=== PATIENT | male | born 1950 | race Caucasian/White ===

== ENCOUNTER 2018-03-23 16:04 | Outpatient (CLI) | payer BC, SELFPAY ==
--- NOTE | 2018-03-23 15:00 | DI.RAD_ITS ---
SYMPTOMS/DIAGNOSIS: CHEST PAIN, R07.9 PA AND LATERAL CHEST: There are no prior comparison exams. The heart size is normal. The aorta is mildly tortuous. The lungs appear clear. No infiltrate, effusion or pneumothorax is seen. IMPRESSION: Negative chest x-ray.
[2018-03-23 15:38] LABS: HCT 47.5 % (40.0-50.0); HGB 15.9 g/dL (13.5-17.5); Mean Corp. HGB Concentration 33.5 g/dL (32.0-36.0); Mean Corpuscular Hemoglobin 29.8 pg (27.0-33.0); Mean Platelet Volume 10.9 fL (8.0-11.0); Platelet Count 193 x1000/uL (130-400); RBC 5.34 m/cumm (4.50-6.00); RBC Distribution Width 13.3 % (11.8-14.1); White Blood Cell Count 6.54 k/cumm (4.4-10.8)
[2018-03-23 16:07] LABS: ALT 26 U/L (12-78); AST 17 U/L (15-37); Albumin 3.7 g/dL (3.4-5.0); Alkaline Phosphatase 62 U/L (46-116); Anion Gap 10.3 mmol/L (3-11); BUN 18 mg/dL (7-18); Bilirubin, Total 0.4 mg/dL (0.2-1.0); CO2 29.7 mmol/L (21.0-32.0); CREATININE 0.97 mg/dL (0.70-1.30); Calcium 9.1 mg/dL (8.5-10.1); Chloride 104 mmol/L (98-107); Glucose 100 mg/dL (70-100); Sodium 144 mmol/L (136-145); Total Protein 7.1 g/dL (6.4-8.2)
[2018-03-23 20:58] LABS: CRP, High Sensitivity 0.14 mg/L
== END 2018-03-23 16:24 ==
PROVIDERS: PCP Nurse Practitioner; Visit Provider Nurse Practitioner
DX: R07.89 Other chest pain (principal)
CPT/HCPCS: 36415; 80053; 85027; 86141; 71046

== ENCOUNTER 2020-06-23 02:52 | Outpatient (CLI) | payer BC, SELFPAY ==
[2020-06-23 11:24] LABS: HCT 48.6 % (40.0-50.0); HGB 15.8 g/dL (13.5-17.5); MCH 29.2 pg (27.0-33.0); MCHC 32.5 % (32.0-36.0); MCV 89.8 fL (80-95); MPV 10.9 fL (8.0-11.0); Platelet Count 204 10^3/uL (130-400); RBC 5.41 10^6/uL (4.36-5.78); RDW-SD 42.8 fL; WBC 5.68 10^3/uL (4.4-10.8)
[2020-06-23 12:03] LABS: ALT 33 U/L (16-63); AST 26 U/L (15-37); Albumin 3.8 g/dL (3.4-5.0); Alkaline Phosphatase 73 U/L (46-116); Anion Gap 6.9 mmol/L (3-11); BUN 15 mg/dL (7-18); Bilirubin, Total 0.7 mg/dL (0.2-1.0); CO2 28.1 mmol/L (21.0-32.0); CREATININE 0.8 mg/dL (0.70-1.30); Calcium 8.8 mg/dL (8.5-10.1); Calculated LDL 128 mg/dL (<100); Chloride 106 mmol/L (98-107); Cholesterol 202 mg/dL (<200); Glucose 82 mg/dL (74-106); HDL Cholesterol 63 mg/dL (40-60); Potassium 4.4 mmol/L (3.5-5.1); Sodium 141 mmol/L (136-145); Total Protein 7.1 g/dL (6.4-8.2); Triglyceride 57 mg/dL (<150)
[2020-06-23 17:06] LABS: PSA, Screening 0.2 ng/mL (0.0-4.5)
== END 2020-06-23 02:53 | disposition home or self-care (01) ==
LOC: LBO 02:52
PROVIDERS: PCP Nurse Practitioner; Visit Provider Nurse Practitioner
DX: I10 Essential (primary) hypertension (principal); Z13.220 Encounter for screening for lipoid disorders; Z85.46 Personal history of malignant neoplasm of prostate
CPT/HCPCS: 36415; 80053; 80061; 84153; 85027

== ENCOUNTER 2022-01-18 01:32 | Outpatient (CLI) | payer BC, SELFPAY ==
[2022-01-18 09:35] LABS: HCT 48.6 % (40.0-50.0); HGB 15.9 g/dL (13.5-17.5); MCH 29.7 pg (27.0-33.0); MCHC 32.7 % (32.0-36.0); MCV 91 fL (80-95); MPV 10.4 fL (8.0-11.0); Platelet Count 230 10^3/uL (130-400); RBC 5.36 10^6/uL (4.36-5.78); RDW-SD 40.4 fL
[2022-01-18 10:08] LABS: ALT 23 U/L (16-63); AST 17 U/L (15-37); Albumin 3.7 g/dL (3.4-5.0); Alkaline Phosphatase 60 U/L (46-116); Anion Gap 4.8 mmol/L (3-11); BUN 18 mg/dL (7-18); Bilirubin, Total 0.6 mg/dL (0.2-1.0); CO2 30.2 mmol/L (21.0-32.0); Calcium 9.4 mg/dL (8.5-10.1); Calculated LDL 117 mg/dL (<100); Chloride 103 mmol/L (98-107); Cholesterol 198 mg/dL (<200); Estimated GFR 81.47 (mL/min/1.73m2); Glucose 94 mg/dL (74-106); HDL Cholesterol 64 mg/dL (40-60); Potassium 4.5 mmol/L (3.5-5.1); Sodium 138 mmol/L (136-145); Total Protein 7.6 g/dL (6.4-8.2); Triglyceride 88 mg/dL (<150)
[2022-01-18 18:47] LABS: PSA, Screening 0.4 ng/mL (<=4.5)
[2022-01-21 10:36] LABS: Hepatitis C Ab w Rflx HCV PCR Negative (Negative)
== END 2022-01-18 01:33 | disposition home or self-care (01) ==
PROVIDERS: PCP Nurse Practitioner; Visit Provider Nurse Practitioner
DX: I10 Essential (primary) hypertension (principal); Z85.46 Personal history of malignant neoplasm of prostate; Z11.59 Encounter for screening for other viral diseases; Z12.5 Encounter for screening for malignant neoplasm of prostate
CPT/HCPCS: 36415; 80053; 80061; 84153; 85027; 86803

== ENCOUNTER 2022-05-27 13:23 | Outpatient (REF) | payer BC, SELFPAY ==
--- OUTSIDE RECORDS SUMMARY | 2022-05-27 13:28 | XMS_ITS | Continuity of Care Document ---
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 Role Phone GRISELDA ECKERT NP Primary Care Physician Encounter [facility] NBR [id number] Date(s): 03/12/22 - 03/12/22 [facility] [address], [place] [address] Encounter Diagnosis Complete rotator cuff tear or rupture of right shoulder, not specified as traumatic(Discharge Diagnosis) - 03/12/22 Subacromial impingement of right shoulder(Discharge Diagnosis) - 03/12/22 Discharge Disposition: Home or Self Care Attending Physician: DELMIS Ward Allergies, Adverse Reactions, Alerts No Known Allergies Functional Status 03/12/22 Other exposure to Infectious Disease Non e Medications lisinopril 0 Refill(s) Start Date: 01/10/22 Status: Ordered Problem List Condition Confirmation Course Effective Dates Status Health St atus Informant High blood pressure Confirmed Active Procedures Procedure Date Related Diagnosis Body Site Status Anesthesia for extraperitone al procedures in lower abdomen, including urinary tract; radical prostatectomy (suprapubic, retropubic) Completed Vital Signs Most recent to oldest [Reference Range]: 1 Peripheral Pulse Rate [60-100 bpm] 91 bp m (03/12/22 8:39 AM) Blood Pressure [90-140/60-90 mmHg] 148/8 4mmHg *HI* (03/12/22 8:39 AM) Weight 86.18 kg (03/12/22 8:39 AM) Weight Measured (lbs) 189.994 lb (03/12/22 8:39 AM) Height 177.80 cm (03/12/22 8:39 AM) Height/Length Measured (inches) 70 inch (03/12/22 8:39 AM) BSA Measured 2.06 m2 (03/12/22 8:39 AM) Body Mass Index 27.26 kg/m2 (03/12/22 8:39 AM) Social History Social History Type Response Tobacco Never tobacco user T obacco Use:. Sex Male Physician Outpatient Note * DELMIS Ward: PERFORM Event Display: Office Clinic Note Physician Authored Date: [id number] MAYUR LOPEZ :1950 Age:71 years Sex:Male Visit Date:03/12/2022 Primary Care Physician: GRISELDA ECKERT NP Chief Complaint RIGHT SHOULDER SX 04/01 History of Present Illness The patient comes in today with continued right shoulder pain. ??He was set up for surgery on April 01, 2021 for a right shoulder ELFEGO and RCR.?? Unfortunately??within a short period of time since his last visit he developed sciatica. ??He is in physical therapy. ??He states that things are slowly starting to improve but he cannot imagine??having shoulder surgery with his sciatica the way it isfeeling right now.?? 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 Heis hoping to put shoulder surgery off until next??December or January. Physical Exam Vitals & Measurements HR:??91??(Peripheral)?? BP:??148/84?? SpO2:??98%?? HT:??177.80??cm?? WT:??86.18??kg?? BMI:??27.26?? BSA:??2.06?? General: Alert and oriented x3, pleasant cooperative, in no acute distress, appears to be their stated age, is generally fit appearing.? Right shoulder: Range of motion of the shoulder is full with pain on terminal elevation. ??Neer and Bartlett signs are positive. ??Drop arm test negative. ??Strength is 4 out of 5 to elevation, 5 out of 5 to external and internal rotation strength testing.?? The AC joint is somewhat hypertrophic but nontender to palpation. ??There is no tenderness about the proximal bicipital groove. ??No focaltenderness was appreciated about the greater tuberosity or subacromial space. Assessment/Plan 1.??Complete rotator cuff tear or rupture of right shoulder, not specified as traumatic??M75.121 2.??Subacromial impingement of right shoulder??M75.41 The patient comes in today with a right shoulder rotator cuff tear in the setting of subacromial impingement syndrome. ??He has??a??episode of sciatica that is??preventing him from doing most activities. ??He is??in physical therapy and is slowly making progress.?? Due to work, and his busy season as a financial processing clerk,??he would like to hold off on shoulder surgery??until next December.?? I counseled him at length that??if this were to be put off for a significant period of time,??the tendon may become less repairable??or the tear may become worse over time.?? He is in understanding of this but would still like to put off shoulder surgery. ??I counseled him if things were to get worse??and he would like to??have surgery prior to december we are happy to do that.?? In addition I offered for imaging of his lumbar spine. ??He would like to hold off as he is making progress with physical therapy.?? We will see him back as needed. Problem List/Past Medical History Ongoing High blood pressure Historical History of laparoscopic radical prostatectomy using robotic assistance Procedure/Surgical History ???Anesthesia for extraperitoneal procedures in lower abdomen, including urinary tract; radical prostatectomy (suprapubic, retropubic) Medications lisinopril Allergies No Known Allergies Social History Alcohol Current, Beer, Liquor- Comments: OCCASSIONALLY Electronic Cigarette/Vaping Electronic Cigarette Use: Never. Employment/School Employed, Work/School description: [employer]. Tobacco Never tobacco user Tobacco Use:. Electronically Signed on 03/12/22 09:03 AM DELMIS Ward Electronically Signed on 03/12/22 02:51 PM Clif Troy MD Patient Care team information Personnel Name: GRISELDA ECKERT NP Address: Address: [address] [place] [address]- [place]
--- OUTSIDE RECORDS SUMMARY | 2022-05-27 13:28 | XMS_ITS | Continuity of Care Document ---
Author Name Unknown Organization [facility] Address [address] [place] [address] Care Team Providers Care Regional Education Manager Name Role Phone GRISELDA ECKERT Primary Care Physician Encounter [facility] NBR [id number] Date(s): 12/24/21 - 12/24/21 [facility] [address] [place] [address] [place] Social History Social History Type Response Sex Male Patient Care team information Personnel Name: GRISELDA ECKERT Address: Address: [address] [place] [address]
--- OUTSIDE RECORDS SUMMARY | 2022-05-27 13:28 | XMS_ITS | Continuity of Care Document ---
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 NBR [id number] Date(s): 01/10/22 - 01/10/[address] [address] Discharge Disposition: Home or Self Care Attending Physician: Clif Troy MD Admitting Physician: Clif Troy MD Allergies, Adverse Reactions, Alerts No Known Allergies Assessment and Plan Future Scheduled Tests Radiology* MRI Shoulder w/o Contrast Right 01/10/22 Medications lisinopril 0 Refill(s) Start Date: 01/10/22 Status: Ordered Problem List Condition Confirmation Course Effective Dates Status Health St [facility] Informant High blood pressure Confirmed Active Procedures Procedure Date Related Diagnosis Body Site Status Anesthesia for extraperitone al procedures in lower abdomen, including urinary tract; radical prostatectomy (suprapubic, retropubic) Completed Results Radiology Reports * Exam Date Time Procedure Performing Provider Status 01/10/22 8:40 AM XR Shoulder Complete 2+ Views Right Giovani Goss (Verified) Notes: (XR Shoulder Complete 2+ Views Right) Reason For Exam: Right shoulder pain XR Shoulder Complete 2+ Views Right EXAM DESCRIPTION: XR Shoulder Complete 2+ Views Right 01/10/2022 INDICATION: RIGHT SHOULDER PAIN COMPARISON: None IMPRESSION: No acute fracture or dislocation No significant regional arthritic changes. AC joint and glenohumeral joint spaces are relatively well maintained No focal lytic or sclerotic lesion. JOB #: [id number] Final Signed by: Jose Hernandez MD Signed (Electronic Signature): 01/10/2022 8:41 am Social History Social History Type Response Tobacco Never tobacco user T obacco Use:. Sex Male XR Shoulder - right GE 2 Views * Jose Hernandez MD: VERIFY, VERIFY Event Display: Report EXAM DESCRIPTION: XR Shoulder Complete 2+ Views Right 01/10/2022 INDICATION: RIGHT SHOULDER PAIN COMPARISON: None IMPRESSION: No acute fracture or dislocation No significant regional arthritic changes. AC joint and glenohumeral joint spaces are relatively well maintained No focal lytic or sclerotic lesion. JOB #: [id number] Final Signed by: Jose Hernandez MD Signed (Electronic Signature): 01/10/2022 8:41 am Patient Care team information Personnel Name: GRISELDA ECKERT Address: Address: [address] [place] [id number] [place] [address]
--- OUTSIDE RECORDS SUMMARY | 2022-05-27 13:28 | XMS_ITS | Continuity of Care Document ---
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 Name Role Phone GRISELDA ECKERT Primary Care Physician Encounter [facility] NBR [id number] Date(s): 01/10/22 - 01/10/22 [facility] [address] [place], [place] [address] Encounter Diagnosis Subacromial impingement of right shoulder(Discharge Diagnosis) - 01/10/22 Discharge Disposition: Home or Self Care Attending Physician: Clif Troy MD Allergies, Adverse Reactions, Alerts No Known Allergies Assessment and Plan Future Scheduled Tests Radiology* MRI Shoulder w/o Contrast Right 01/10/22 Functional Status 01/10/22 Other exposure to Infectious Disease Non e [...] Range]: 1 Peripheral Pulse Rate [60-100 bpm] 80 bp m (01/10/22 8:34 AM) Blood Pressure [90-140/60-90 mmHg] 130/7 5mmHg (01/10/22 8:34 AM) Weight 86.18 kg (01/10/22 8:34 AM) Weight Measured (lbs) 189.994 lb (01/10/22 8:34 AM) Height 177.8 cm (01/10/22 8:34 AM) Height/Length Measured (inches) 70 inch (01/10/22 8:34 AM) BSA Measured 2.06 m2 (01/10/22 8:34 AM) Body Mass Index 27.26 kg/m2 (01/10/22 8:34 AM) Social History Social History Type Response Tobacco Never tobacco user T obacco Use:. Sex Male Hospital Discharge Instructions Follow Up Care 12/28/2021 11:31:31 With:MRI Address: When: Unknown Procedure note * Virginia Dalton: PERFORM Event Display: Procedure Note Authored Date: [id number] Physician Outpatient Note * Clif Troy MD: PERFORM Event Display: Office Clinic Note Physician Authored Date: [id number] MAYUR LOPEZ :1950 Age:71 years Sex:Male Visit Date:01/10/2022 Primary Care Physician: GRISELDA ECKERT Chief Complaint RIGHT SHOULDER PAIN History of Present Illness Please send a copy of this note to Dr. Griselda Eckert. ?? 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 Eckert for the evaluation of right shoulder pain and weakness. ??The patient states that for the past 5 years he hasexperienced a chronic right shoulder ache that will last several days intermittently.?? The patientstates that while working on a job in [place] on 10/25/2021, he experienced a difficult roof removal. ??He repetitively used a pry bar to remove shani material and experience lateral??right shoulder pain after the first day.?? The patient states that by the next evening he was having pain at night with difficulty sleeping. ??He subsequently performed landscaping around his house and states that bythe end of the weekend his shoulder was very painful.?? He has been in physical therapy??without??noticeable improvement. ??He persists with lateral sided shoulder pain that is worse with abduction and forward elevation activities, particularly those above the horizontal that require lifting.?? Histherapist is concerned that he may have a rotator cuff tear. ??He is questionably weak. ??He deniesnumbness or tingling. ??His shoulder has been waking him for the last 2 weeks. ??He has not found anti-inflammatories to be helpful for this. Physical Exam Vitals & Measurements HR:??80??(Peripheral)?? BP:??130/75?? SpO2:??99%?? HT:??177.8??cm?? WT:??86.18??kg?? BMI:??27.26?? Pain Score:??6?? BSA:??2.06?? The patient's??right??upper??extremity is neurovascularly intact. ??Sensation and motor exam are intact distally. ??All digits are warm and pink.?? No Moe deformity or obvious atrophy is present. ??Range of motion of the shoulder is full with pain on terminal elevation. ??Neer and Bartlett signs are positive. ??Drop arm test negative. ??Strength is 4 out of 5 to elevation, 5 out of 5 to external and internal rotation strength testing.?? The AC joint is somewhat hypertrophic but nontender to palpation. ??There is no tenderness about the proximal bicipital groove. ??No focal tenderness was appreciated about the greater tuberosity or subacromial space. Assessment/Plan 1.??Subacromial impingement of right shoulder??M75.41 Ordered: MRI Shoulder w/o Contrast Right, 01/10/22, Routine, Reason: Right shoulder pain and weakness, possible rotator cuff tear, No, No, Transport Mode: Ambulatory, Subacromial impingement of right shoulder ?? The patient demonstrates evidence of right shoulder pain secondary to chronic subacromial impingement syndrome and possible rotator cuff tear. ??He has been on a conservative course of management without relief. ??I would like to obtain an MRI to further evaluate for possible rotator cuff tear. ??The patient verbalized understanding and all questions were answered. ??We will see him after the study for discussion of the results. ?? I personally reviewed the patient's referral, outside consultation notes, previous radiographic images and results, and relevant tests. ?? Thank you for the courtesy of this referral. Future Orders MRI Shoulder w/o Contrast Right, 01/10/22, Routine, Reason: Right shoulder pain and weakness, possible rotator cuff tear, No, No, Transport Mode: Ambulatory, Subacromial impingement of right shoulder Follow Up Instructions With When Contact Information MRI Additional Instructions: Problem List/Past Medical History Ongoing High blood pressure Historical History of laparoscopic radical prostatectomy using robotic assistance Procedure/Surgical History ???Anesthesia for extraperitoneal procedures in lower abdomen, including urinary tract; radical prostatectomy (suprapubic, retropubic) Medications lisinopril Allergies No Known Allergies Social History Electronic Cigarette/Vaping Electronic Cigarette Use: Never. Tobacco Never tobacco user Tobacco Use:. Diagnostic Results Diagnostic Study Interpretation: Indication for study: Right shoulder pain Views: 3 views of the right shoulder ?? I personally viewed and interpreted the radiographs in the generation of this report. ?? Findings: No fracture or dislocation is observed. ??The glenohumeral joint is preserved. ??No osacromiale is present. ??A type III acromion is present. ??The AC joint appears to be wide with milddegenerative changes. ??Visualized portions of the right lung field demonstrate no evidence of discrete masses. Electronically Signed on 01/10/22 09:05 AM Clif Troy MD Patient Care team information Personnel Name: GRISELDA ECKERT Address: Address: [address] [place] [id number] [place] [address]
--- OUTSIDE RECORDS SUMMARY | 2022-05-27 13:28 | XMS_ITS | Continuity of Care Document ---
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 Name Role Phone GRISELDA ECKERT Primary Care Physician Encounter [facility] NBR [id number] Date(s): 02/05/22 - 02/05/22 [facility] [address] [place], [place] [address] Encounter Diagnosis Subacromial impingement of right shoulder(Discharge Diagnosis) - 02/05/22 Complete rotator cuff tear or rupture of right shoulder, not specified as traumatic(Discharge Diagnosis) - 02/05/22 Discharge Disposition: Home or Self Care Attending Physician: Clif Troy MD Allergies, Adverse Reactions, Alerts No Known Allergies Functional Status 02/05/22 Other exposure to Infectious Disease Non e [...] Range]: 1 Peripheral Pulse Rate [60-100 bpm] 82 bp m (02/05/22 9:48 AM) Blood Pressure [90-140/60-90 mmHg] 120/7 0mmHg (02/05/22 9:48 AM) Weight 86.18 kg (02/05/22 9:48 AM) Weight Measured (lbs) 189.994 lb (02/05/22 9:48 AM) Height 175.25 cm (02/05/22 9:48 AM) Height/Length Measured (inches) 69 inch (02/05/22 9:48 AM) BSA Measured 2.05 m2 (02/05/22 9:48 AM) Body Mass Index 28.06 kg/m2 (02/05/22 9:48 AM) Social History Social History Type Response Tobacco Never tobacco user T obacco Use:. 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 ??The patient states that for the past 5 years he has experienced a chronic right shoulder ache that will last several days intermittently.?? The patient states that while working on a job in [place] on 10/25/2021, he experienced a difficult roof removal. ??He repetitively used a pry bar to remove shani material and experience lateral??right shoulder pain after the first day.?? The patient states that by the next evening he was having pain at night with difficulty sleeping. ??He subsequently performed land scaping around his house and states that by the end of the weekend his shoulder was very painful.??He has been in physical therapy??without??noticeable improvement. ??He persists with lateral sided shoulder pain that is worse with abduction and forward elevation activities, particularly those above the horizontal that require lifting.?? He denies numbness or tingling. ??His shoulder has been waking him for the last 2 weeks. ??He has not found anti- inflammatories to be helpful for this.?? Because of concerns of rotator cuff tear, an MRI??was obtained. ??The patient now presents for follow-up and a discussion of the results. Physical Exam Vitals & Measurements HR:??82??(Peripheral)?? BP:??120/70?? SpO2:??99%?? HT:??175.25??cm?? WT:??86.18??kg?? BMI:??28.06?? BSA:??2.05?? The patient's??right??upper??extremity is neurovascularly intact. ??Sensation and [...] space. Assessment/Plan 1.??Subacromial impingement of right shoulder??M75.41 2.??Complete rotator cuff tear or rupture of right shoulder, not specified as traumatic??M75.121 The patient demonstrates evidence of right shoulder pain and weakness secondary to chronic subacromial impingement syndrome and a focal full-thickness anterior supraspinatus insertional tear in the setting of extensive??partial-thickness tearing. ??The treatment options were discussed with the patient who has been on a course of nonoperative management without relief.?? The patient opted to proceed with surgical management. ??The procedure of right shoulder arthroscopy, ELFEGO and RCR was described in detail to the patient as well as the associated risks, benefits, alternatives, possible complications, and postoperative course. ??The patient verbalized understanding and all questions were answered. ?? We went over use of narcotics postoperatively. ??We will use the smallest dose for the shortest period of time for their acute postoperative pain only. ??This will be in addition to icing, Tylenol, physical therapy, and bracing. ??We will obtain consent and do a risk assessment tool. ??We will also need to check the PDMP as needed. Follow Up Instructions With When Contact Information Surgery Additional Instructions: Problem List/Past Medical History Ongoing High blood pressure Historical History of laparoscopic radical prostatectomy using robotic assistance Procedure/Surgical History ???Anesthesia for extraperitoneal procedures in lower abdomen, including urinary tract; radical prostatectomy (suprapubic, retropubic) Medications lisinopril Allergies No Known Allergies Social History Electronic Cigarette/Vaping Electronic Cigarette Use: Never. Tobacco Never tobacco user Tobacco Use:. Diagnostic Results Diagnostic Study Interpretation: MRI of the patient's right shoulder obtained on 01/25/2022 demonstrates an extensive partial-thickness supraspinatus insertional tear with a focal full- thickness??defect anteriorly. ??No muscular atrophy is present. ??The AC joint is preserved. ??A type II acromion is present. ??No os acromiale is present. ??The glenohumeral joint is preserved. ??The long of the biceps tendon appears to be intact.??He demonstrates a possible anterosuperior labral tear. Electronically Signed on 02/05/22 10:35 AM Cilf Troy MD Patient Care team information Personnel Name: GRISELDA ECKERT Address: Address: [address] [place] [address]
--- OUTSIDE RECORDS SUMMARY | 2022-05-27 13:28 | XMS_ITS | Continuity of Care Document ---
Author Name Unknown Organization [facility] Address [address] [place] [id number] Care Team Providers Care Coater [employer] Paper Name Role Phone GRISELDA ECKERT Primary Care Physician Encounter [facility] NBR [id number] Date(s): 01/25/22 - 01/25/[address] [id number] Discharge Disposition: Home or Self Care Attending Physician: Clif Troy MD Admitting Physician: Clif Troy MD Allergies, Adverse Reactions, Alerts No Known Allergies Assessment and Plan Future Appointments Medications lisinopril 0 Refill(s) Start Date: 01/10/22 Status: Ordered Problem List Condition Confirmation Course Effective Dates Status [facility] Informant High blood pressure Confirmed Active Procedures Procedure Date Related Diagnosis Body Site Status Anesthesia for extraperitone al procedures in lower abdomen, including urinary tract; radical prostatectomy (suprapubic, retropubic) Completed Results Radiology Reports * Exam Date Time Procedure Performing Provider Status 01/25/22 3:33 PM MRI Shoulder w/o Con trast Right DomainUser, Generated; Auth (Verified) Notes: (MRI Shoulder w/o Contrast Right) Reason For Exam: Right shoulder pain and weakness, possible rotator cuff tear MRI Shoulder w/o Contrast Right EXAM DESCRIPTION: MRI Shoulder w/o Contrast Right 01/25/2022 INDICATION: RIGHT SHOULDER PAIN AND WEAKNESS, POSSIBLE ROTATOR CUFF TEAR TECHNIQUE: Multiplanar MRI examination of the right shoulder utilizing T1, PD and fat-suppressed T2 technique COMPARISON: Routine radiographs of the right shoulder from 01/10/2022 FINDINGS: Extensive T2 signal prolongation in the anterior aspect of the supraspinatus tendon near its greater tuberosity insertion consistent with extensive partial tear or focal full-thickness tear without tendon retraction. A focal full-thickness tear is suspected with abnormal fluid in the subacromial/subdeltoid bursa. Additional intermediate signal abnormality within the supraspinatus tendon consistent with underlying tendinosis. No full-thickness infraspinatus or subscapularis tendon tear. Teres minor tendon insertion appears intact. No rotator cuff muscle atrophy/volume loss or fatty infiltration No significant AC joint arthritic changes. No significant downsloping of the acromion. Type 2 acromion. No os acromiale. No significant glenohumeral joint arthritic changes. No glenohumeral joint effusion. No regional marrow edema with mild nonspecific cystic changes in the humeral head. Coracoacromial ligament appears intact Biceps anchor appears intact. Proximal aspect of the long head biceps tendon is normally situated in the bicipital groove with no intrasubstance signal abnormality to suggest tendinosis. Short head biceps tendon origin appears intact. Small defect involving the anterior glenoid labrum suspicious for tear. Irregularity involving the superior glenoid labrum on coronal images suspicious for component of SLAP tear as well. No Hill-Sachs or Bankart lesion. No regional muscle edema to suggest strain or myositis. IMPRESSION: Abnormal signal in the distal supraspinatus tendon near its greater tuberosity insertion consistent extensive partial tear or focal full-thickness tear without tendon retraction. Focal full-thickness tear is suspected based on abnormal fluid in the subacromial/subdeltoid bursa. Findings consistent with underlying supraspinatus tendinosis. No supraspinatus muscle atrophy. Small tear involving the anterior glenoid labrum. SLAP tear is suspected as well. JOB #: [id number] Final Signed by: Jose Hernandez MD Signed (Electronic Signature): 01/25/2022 4:17 pm Social History Social History Type Response Tobacco Never tobacco user T obacco Use:. Sex Male MR Shoulder - right WO contrast * Jose Hernandez MD: VERIFY, VERIFY Event Display: Report EXAM DESCRIPTION: MRI Shoulder w/o Contrast Right 01/25/2022 INDICATION: RIGHT SHOULDER PAIN AND WEAKNESS, POSSIBLE ROTATOR CUFF TEAR TECHNIQUE: Multiplanar MRI examination of the right shoulder utilizing T1, PD and fat-suppressed T2 technique COMPARISON: Routine radiographs of the right shoulder from 01/10/2022 FINDINGS: Extensive T2 signal prolongation in the anterior aspect of the supraspinatus tendon near its greater tuberosity insertion consistent with extensive partial tear or focal full-thickness tear without tendon retraction. A focal full-thickness tear is suspected with abnormal fluid in the subacromial/subdeltoid bursa. Additional intermediate signal abnormality within the supraspinatus tendon consistent with underlying tendinosis. No full-thickness infraspinatus or subscapularis tendon tear. Teres minor tendon insertion appears intact. No rotator cuff muscle atrophy/volume loss or fatty infiltration No significant AC joint arthritic changes. No significant downsloping of the acromion. Type 2 acromion. No os acromiale. No significant glenohumeral joint arthritic changes. No glenohumeral joint effusion. No regional marrow edema with mild nonspecific cystic changes in the humeral head. Coracoacromial ligament appears intact Biceps anchor appears intact. Proximal aspect of the long head biceps tendon is normally situated in the bicipital groove with no intrasubstance signal abnormality to suggest tendinosis. Short head biceps tendon origin appears intact. Small defect involving the anterior glenoid labrum suspicious for tear. Irregularity involving the superior glenoid labrum on coronal images suspicious for component of SLAP tear as well. No Hill-Sachs or Bankart lesion. No regional muscle edema to suggest strain or myositis. IMPRESSION: Abnormal signal in the distal supraspinatus tendon near its greater tuberosity insertion consistent extensive partial tear or focal full-thickness tear without tendon retraction. Focal full-thickness tear is suspected based on abnormal fluid in the subacromial/subdeltoid bursa. Findings consistent with underlying supraspinatus tendinosis. No supraspinatus muscle atrophy. Small tear involving the anterior glenoid labrum. SLAP tear is suspected as well. JOB #: [id number] Final Signed by: Jose Hernandez MD Signed (Electronic Signature): 01/25/2022 4:17 pm Patient Care team information Personnel Name: GRISELDA ECKERT Address: Address: [address] [place] [address]
[2022-05-28 17:09] LABS: PSA, Ultrasensitive 0.42 ng/mL (<= 4.5)
[2022-05-31 15:59] LABS: Testosterone, Total 472 ng/dL (240-950)
== END 2022-05-27 13:24 | disposition home or self-care (01) ==
LOC: LBN 13:23
PROVIDERS: PCP Nurse Practitioner; Visit Provider Nurse Practitioner Gerontology
DX: Z85.46 Personal history of malignant neoplasm of prostate (principal); R97.20 Elevated prostate specific antigen [PSA]
CPT/HCPCS: 84153; 84403

== ENCOUNTER 2023-02-19 14:53 | Outpatient (CLI) | payer BC, SELFPAY ==
[2023-02-20 15:27] LABS: PSA, Ultrasensitive 0.61 ng/mL (<= 6.5)
== END 2023-02-19 14:54 | disposition home or self-care (01) ==
LOC: LBO 14:53
PROVIDERS: PCP Nurse Practitioner; Visit Provider Nurse Practitioner Gerontology
DX: Z85.46 Personal history of malignant neoplasm of prostate (principal)
CPT/HCPCS: 36415; 84153

== ENCOUNTER 2023-04-07 11:35 | Outpatient (CLI) | payer BC, SELFPAY ==
--- NOTE | 2023-04-07 09:17 | DI.RAD_ITS ---
Exam(s) XR KNEE RT 3V AP,LAT,ROSIO EXAM: XR KNEE RT 3V AP,LAT,ROSIO CLINICAL HISTORY: right knee pain. TECHNIQUE: 2D digital imaging was performed of the right knee. Three views obtained. AP, lateral an d PA tunnel views were obtained. COMPARISON: There are no priors for comparison. FINDINGS: BONES: No acute fracture is present. No bony destructive lesion is seen. There is an enthesophyte at the anterior patella. JOINTS: There is mild narrowing of the medial femoral tibial joint. There is mild spurring of the po sterior patella. No joint effusion is seen. SOFT TISSUE: Vascular calcifications are present. IMPRESSION: Mild degenerative changes of the right knee. DATA REPOSITORY: RADIATION DOSE DELIVERED:
== END 2023-04-07 11:36 | disposition home or self-care (01) ==
LOC: DIORS 11:35
PROVIDERS: PCP Nurse Practitioner; Visit Provider Physician Assistant
DX: M17.12 Unilateral primary osteoarthritis, left knee (principal)
CPT/HCPCS: 73562

== ENCOUNTER 2023-04-28 15:19 | Outpatient (CLI) | payer BC, SELFPAY ==
--- NOTE | 2023-04-28 09:38 | DI.RAD_ITS ---
Exam(s) XR THUMB LT EXAM: XR THUMB LT CLINICAL HISTORY: eval left thumb cmc. TECHNIQUE: 2D digital imaging was performed. Three views. COMPARISON: None. FINDINGS: BONES: No acute fracture is present. No bony destructive lesion is seen. JOINTS: No dislocation or subluxation present. Moderate to severe narrowing at the 1st carpal metaca rpal joint. Mild to moderate periarticular spurring. Mild degenerative changes at the interphalange al joint of the thumb. SOFT TISSUE: Normal. IMPRESSION: Moderate to severe degenerative changes of the 1st carpal metacarpal joint. DATA REPOSITORY: RADIATION DOSE DELIVERED:
== END 2023-04-28 15:20 | disposition home or self-care (01) ==
LOC: DIORS 15:21
PROVIDERS: PCP Nurse Practitioner; Visit Provider Student in an Organized Health Care Education/Training Program
DX: M18.12 Unilateral primary osteoarthritis of first carpometacarpal joint, left hand (principal)
CPT/HCPCS: 73140

== ENCOUNTER 2023-11-13 03:01 | Outpatient (CLI) | payer BC, SELFPAY ==
[2023-11-13 08:11] LABS: ALT 22 U/L (16-63); AST 18 U/L (15-37); Albumin 3.4 g/dL (3.4-5.0); Alkaline Phosphatase 69 U/L (46-116); Anion Gap 7.1 mmol/L (3-11); BUN 18 mg/dL (7-18); Bilirubin, Total 0.56 mg/dL (0.2-1.0); CO2 29.9 mmol/L (21.0-32.0); Chloride 103 mmol/L (98-107); Estimated GFR 80.47 (mL/min/1.73m2); Glucose 98 mg/dL (74-106); Sodium 140 mmol/L (136-145); Total Protein 7.2 g/dL (6.4-8.2)
[2023-11-13 08:13] LABS: Calculated LDL 120 mg/dL (<100); Cholesterol 208 mg/dL (<200); HDL Cholesterol 66 mg/dL (40-60); Triglyceride 114 mg/dL (<150)
[2023-11-13 09:23] LABS: GGT 22 U/L (15-85)
[2023-11-15 10:36] LABS: PSA, Ultrasensitive 0.54 ng/mL (<= 6.5)
== END 2023-11-13 03:02 | disposition home or self-care (01) ==
LOC: LBO 03:01
PROVIDERS: Emergency Medicine; PCP Nurse Practitioner; Referring Provider Nurse Practitioner; Visit Provider Nurse Practitioner
DX: K21.9 Gastro-esophageal reflux disease without esophagitis (principal); I10 Essential (primary) hypertension; Z13.220 Encounter for screening for lipoid disorders; Z85.46 Personal history of malignant neoplasm of prostate
CPT/HCPCS: 36415; 80053; 80061; 84153; 82977

== ENCOUNTER → 2025-01-21 01:56 | Outpatient (CLI) | payer BC, SELFPAY ==
--- NOTE | 2025-01-21 06:30 | DI.CT_ITS ---
Exam(s) CT HEAD WO/W EXAM: CT HEAD WO/W CLINICAL HISTORY: imbalance weakness, R26.89, R53.1. TECHNIQUE: Imaging Protocol: Axial computed tomography images with coronal and sagittal reformatted images were created and reviewed. CONTRAST MATERIAL: Intravenous: Omnipaque 350 Contrast volume:structured data in ml COMPARISON: No exams were available for comparison FINDINGS: Ventricles and Extra axial spaces: Normal in size and morphology for the patient's age. Hemorrhage: None. Cerebral parenchyma: Normal. Enhancement: No suspicious enhancement. Microvascular changes of the white matter. Midline shift: None. Brainstem/Cerebellum: Normal. Calvarium: Normal. Visualized Paranasal sinuses/Mastoids: Clear. IMPRESSION: No acute abnormality. RADIATION DOSE DELIVERED: 1,867.5mGy.cm Total DLP DATA REPOSITORY: All CT scans at this facility are submitted to the National Radiology Data Registry (NRDR) Dose Index Registry (DIR) with the [employer] (A[employer]). RADIATION OPTIMIZATION: All CT scans at this facility use at least one of these dose optimization techniques: automated exposure control; mA and/or kV adjustment per patient size (includes targeted exams where dose is matched to clinical indication); or iterative reconstruction.
[2025-01-21 13:17] LABS: HCT 44.7 % (40.0-50.0); HGB 15.0 g/dL (13.5-17.5); MCH 29.0 pg (27.0-33.0); MCHC 33.6 % (32.0-36.0); MCV 86 fL (80-95); MPV 10.4 fL (8.0-11.0); Platelet Count 229 10^3/uL (130-400); RBC 5.18 10^6/uL (4.36-5.78); RDW 11.9 % (11.8-14.1); RDW-SD 37.6 fL; WBC 6.56 10^3/uL (4.4-10.8)
[2025-01-21 13:30] LABS: C-Reactive Protein < 0.50 mg/dL (<=0.50)
[2025-01-21 13:34] LABS: TSH 4.23 uIU/mL (0.55-4.78); Vitamin B12 567 pg/mL (211-911)
[2025-01-21 13:35] LABS: ALT 18 U/L (10-49); AST 28 U/L (<34); Albumin 4.0 g/dL (3.2-5.0); Alkaline Phosphatase 68 U/L (46-116); Anion Gap 7.4 mmol/L (3-11); BUN 17 mg/dL (9-23); Bilirubin, Total 0.50 mg/dL (0.2-1.2); CO2 28.6 mmol/L (20.0-31.0); Calcium 9.3 mg/dL (8.3-10.6); Chloride 105 mmol/L (98-107); Glucose 85 mg/dL (74-106); Sodium 141 mmol/L (136-145); Total Protein 7.3 g/dL (5.7-8.2)
[2025-01-21] MEDS: Normal Saline - Diluent 50 ML VIAL IJ (14:04)
[2025-01-21] MEDS: Omnipaque 350 MG/ML 100 ML BTL IJ (14:04)
[2025-01-21] MEDS: Normal Saline Flush 10 ML SYR IVP (14:05)
[2025-01-21 14:09] LABS: Potassium 3.9 mmol/L (3.5-5.1)
[2025-01-21 14:18] LABS: GGT 28 U/L (<73)
[2025-01-21 15:38] LABS: Potassium 4.2 mmol/L (3.5-5.1)
[2025-01-21 15:53] LABS: GGT 28 U/L (<73)
[2025-01-21 22:18] LABS: PSA, Diagnostic 0.7 ng/mL (<=6.5)
== END ==
LOC: DI 01:56
PROVIDERS: PCP Nurse Practitioner; Visit Provider Emergency Medicine
DX: R26.89 Other abnormalities of gait and mobility (principal); R53.1 Weakness; E03.9 Hypothyroidism, unspecified; C61 Malignant neoplasm of prostate; I10 Essential (primary) hypertension
CPT/HCPCS: 80053; 85027; 70470; 82607; 82977; 84132; 84153; 84443; 86140; J3490